=== PATIENT | female | born 1970 | race Caucasian/White ===

== ENCOUNTER 2016-12-19 13:09 | Outpatient (CLI) | payer OTHER ==
[~2016-12-19] VITALS: Ht 162.6 cm; Wt 90.1 kg
[~2016-12-19 13:09] MED LIST: AMLO5TAB2 PO; ESCI20TA PO; POTA1TAB23 PO; TOPR50TA PO; VITA-122 PO
[2016-12-19] MEDS ORDERED: NS 1,000 ML IV ONE (13:30)
[2016-12-19] MEDS ORDERED: LIDOCAINE 2% INJ 100 MG/5 ML SDV (FOR ANES.) As Ordered ONE (14:34)
[2016-12-19] MEDS ORDERED: PROPOFOL 200 MG/20 ML VIAL As Ordered ONE (14:34)
--- NOTE | 2016-12-19 14:40 | ROOR ---
Patient Name: Ginger Doran Procedure Date: 12/19/2016 2:25 PM Date of : 1970 Age: 46 Room: [facility] Gender: Female Note Status: Finalized Procedure: Upper GI endoscopy Indications: Epigastric abdominal pain, Nausea Providers: Mango SAUNDERS MD Referring MD: Nuvia Palencia NP Requesting Provider: Medicines: Monitored Anesthesia Care Complications: No immediate complications. Procedure: Pre-Anesthesia Assessment: - The heart rate, respiratory rate, oxygen saturations, blood pressure, adequacy of pulmonary ventilation, and response to care were monitored throughout the procedure. The Endoscope was introduced through the mouth, and advanced to the second part of duodenum. The upper GI endoscopy was accomplished without difficulty. The patient tolerated the procedure well. Findings: Minimal inflammation characterized by erythema was found in the gastric antrum. Biopsies were taken with a cold forceps for Helicobacter pylori testing. The examined esophagus was normal. The examined duodenum was normal. Impression: - Mild gastritis. Biopsied. - Normal esophagus. - Normal examined duodenum. Recommendation: - Telephone endoscopist for pathology results in 2 weeks. - I will make referral to a surgeon at appointment to be scheduled. - (for symptomatic gallstone disease) Mango Saunders MD Mango SAUNDERS MD 12/19/2016 2:39:47 PM This report has been signed electronically. Number of Addenda: 0 Note Initiated On: 12/19/2016 2:25 PM Estimated Blood Loss: Estimated blood loss: none.
[2016-12-19 15:20] VITALS: BP 136/73
== END 2016-12-19 15:28 | disposition home or self-care (01) ==
LOC: M OPP 13:09
PROVIDERS: ATTEND Internal Medicine Gastroenterology
DX: R10.13 Epigastric pain (principal); R11.0 Nausea; K29.70 Gastritis, unspecified, without bleeding; I10 Essential (primary) hypertension; K82.9 Disease of gallbladder, unspecified; G47.30 Sleep apnea, unspecified; R06.83 Snoring; E66.9 Obesity, unspecified; E87.6 Hypokalemia; K80.20 Calculus of gallbladder without cholecystitis without obstruction; F17.210 Nicotine dependence, cigarettes, uncomplicated; Z88.8 Allergy status to other drugs, medicaments and biological substances; Z88.5 Allergy status to narcotic agent; Z79.899 Other long term (current) drug therapy

== ENCOUNTER 2017-01-20 11:45 | Day surgery (SDC) | payer OTHER ==
[~2017-01-20] VITALS: Ht 162.6 cm; Wt 89.8 kg
[2017-01-20 12:27] LABS: ALBUMIN 3.6 GM/DL (3.2-5.2); ALKALINE PHOSPHATASE 81 U/L (45-117); ALT/SGPT 28 U/L (12-78); ANION GAP 7 MEQ/L (8-16); AST/SGOT 16 U/L (15-37); BILIRUBIN,TOTAL 0.4 MG/DL (0.2-1.0); BLOOD UREA NITROGEN 9 MG/DL (7-18); CALCIUM LEVEL 8.7 MG/DL (8.5-10.1); CARBON DIOXIDE LEVEL 30 MEQ/L (21-32); CHLORIDE LEVEL 103 MEQ/L (98-107); CREATININE FOR GFR 0.58 MG/DL (0.55-1.02); GLOMERULAR FILTRATION RATE > 60.0 (>58); GLUCOSE, FASTING 93 MG/DL (70-105); POTASSIUM SERUM 3.5 MEQ/L (3.5-5.1); SODIUM LEVEL 140 MEQ/L (136-145); TOTAL PROTEIN 7.6 GM/DL (6.4-8.2)
[2017-01-20 12:27] LABS: CONTROL LINE UCG INT CTR LINE PRESENT
[2017-01-20] MEDS ORDERED: LR 1,000 ML IV ONE (13:45)
[2017-01-20] MEDS ORDERED: BUPIVACAINE/EPIN 0.25% 30 ML VIAL As Ordered ONE (13:55)
[2017-01-20] MEDS ORDERED: dexameTHASONE 4 MG/ML 1ML VIAL (J1100) As Ordered ONE (14:22)
[2017-01-20] MEDS ORDERED: LIDOCAINE 2% INJ 100 MG/5 ML SDV (FOR ANES.) As Ordered ONE (14:22)
[2017-01-20] MEDS ORDERED: fentaNYL 100 MCG/2 ML INJECTION (J3010) As Ordered ONE (14:22)
[2017-01-20] MEDS ORDERED: ROCURONIUM BROMIDE 50 MG/5 ML VIAL/SYRINGE As Ordered ONE (14:22)
[2017-01-20] MEDS ORDERED: MIDAZOLAM INJ 2 MG/2 ML VIAL (J2250) As Ordered ONE (14:22)
[2017-01-20] MEDS ORDERED: PROPOFOL 200 MG/20 ML VIAL As Ordered ONE (14:22)
[2017-01-20] MEDS ORDERED: GLYCOPYRROLATE INJ 0.2 MG/ML 2 ML VIAL As Ordered ONE ×2 (14:29→14:43)
[2017-01-20] MEDS ORDERED: KETOROLAC 60 MG/2 ML VIAL (J1885) As Ordered ONE (14:29)
[2017-01-20] MEDS ORDERED: ONDANSETRON 4MG/2ML VIAL (J2405) As Ordered ONE (14:29)
[2017-01-20] MEDS ORDERED: NEOSTIGMINE 10 MG/10 ML VIAL (J2710) As Ordered ONE (14:29)
[2017-01-20] MEDS ORDERED: ePHEDrine SULFATE 25 MG/5 ML(5MG/ML) SYRINGE As Ordered ONE (14:31)
[2017-01-20] MEDS ORDERED: LR 1,000 ML IV SCH (15:15)
[2017-01-20] MEDS ORDERED: NORCO, ANEXSIA 5/325MG TABLET (HYDROcodone/ACETAMINOPHEN) PO PRN (15:15)
[2017-01-20] MEDS ORDERED: fentaNYL 100 MCG/2 ML INJECTION (J3010) IV PRN (15:15)
[2017-01-20] MEDS ORDERED: PERCOCET 5MG/325MG TAB PO PRN (15:15)
[2017-01-20] MEDS ORDERED: METOCLOPRAMIDE INJ 10MG/2ML VIAL (J2765) IV PRN (15:15)
[2017-01-20] MEDS ORDERED: ONDANSETRON 4MG/2ML VIAL (J2405) IV PRN (15:15)
[2017-01-20] MEDS ORDERED: MEPERIDINE INJ 25 MG/ML VIAL (J2175) IV PRN (15:15)
--- NOTE | 2017-01-20 15:25 | RO ---
DATE OF PROCEDURE: 01/20/2017 PREOPERATIVE DIAGNOSIS: Symptomatic cholelithiasis. POSTOPERATIVE DIAGNOSIS: Symptomatic cholelithiasis. PROCEDURE: Laparoscopic cholecystectomy. SURGEON: Dr. Jerardo Downs. VIRTUAL CLASSROOM MANAGER: None. ANESTHESIA: General. ESTIMATED BLOOD LOSS: 5 mL COMPLICATIONS: None. INDICATIONS FOR PROCEDURE: The patient is a 46-year-old female who presents with history and physical consistent with symptomatic cholelithiasis. The recommendation to proceed with laparoscopic, possible open cholecystectomy. Risks and benefits of the procedure are not limited but including bleeding, infection, hernia formation, damage to surrounding structures, need further surgery were discussed in detail with the patient. Informed consent was obtained. DESCRIPTION OF THE PROCEDURE: Patient brought back to operating room 3 after sufficient sedation and was sterilely prepped, draped. Next, time-out was done to confirm proper patient brought procedure. Following that a stab incision was made in the left upper quadrant. Veress needle inserted and the abdomen was insufflated to 50 mmHg. Next, a 5 mm supraumbilical incision was made 5 mm OptiView port was used to gain access to the abdomen. Once the abdomen was entered, the Veress needle site was examined. There was no signs of injury. Veress needle was then removed. A 11 mm port was placed subxiphoid, two 5 mm ports in the right upper quadrant. The fundus of the gallbladder was grasped, elevated up towards the right shoulder. The cystic duct and cystic artery were both easily identified with some blunt dissection. They were both doubly clipped and cut. The gallbladder was then removed from the gallbladder fossa using electrocautery, brought out through the subxiphoid port site in a 10 mm EndoCatch bag. The abdomen was then desufflated. Skin incision closed with #4-0 Vicryl subcuticular sutures. The abdomen was cleaned and dried. Steri-Strips, 4x4 and tape were applied thus ending procedure.
[2017-01-20 15:45] VITALS: BP 175/73
== END 2017-01-20 16:30 | disposition home or self-care (01) ==
LOC: M SDC 11:45
PROVIDERS: ATTEND Surgery
DX: K80.10 Calculus of gallbladder with chronic cholecystitis without obstruction (principal); I10 Essential (primary) hypertension; C44.91 Basal cell carcinoma of skin, unspecified; F32.9 Major depressive disorder, single episode, unspecified; F41.9 Anxiety disorder, unspecified; G47.33 Obstructive sleep apnea (adult) (pediatric); Z88.5 Allergy status to narcotic agent; Z88.8 Allergy status to other drugs, medicaments and biological substances; Z79.899 Other long term (current) drug therapy; Z72.0 Tobacco use
CPT/HCPCS: 36415; 47562; 80053; 84703; 88304; J0690; J1100; J1885; J2250; J2405; J2710; J3010

== ENCOUNTER → 2017-03-24 | Outpatient (REF) | payer OTHER | LOC: M LAB REF 15:38 | PROVIDERS: ATTEND Internal Medicine Endocrinology, Diabetes & Metabolism | DX: E04.2 Nontoxic multinodular goiter (principal) ==